=== PATIENT | male | born 1960 | race Caucasian/White ===

== ENCOUNTER 2018-03-31 09:14 | Inpatient (IN) | payer OTHER ==
[2018-03-24 17:47] VITALS: BMI 35.4
[2018-03-31] MEDS ORDERED: DEXAMETHASONE SOD PHOSPHATE 4 MG/1 ML VIAL ONE (10:35)
[2018-03-31] MEDS ORDERED: ONDANSETRON 4 MG/2 ML VIAL ONE (10:35)
[2018-03-31] MEDS ORDERED: MIDAZOLAM HCL 2 MG/2 ML SINGLE DOSE VIAL ONE ×6 (10:35→13:27)
[2018-03-31] MEDS ORDERED: BUPIVACAINE HCL/PF (5 MG/ML) 30 ML VIAL IJ ONE (10:42)
[2018-03-31] MEDS ORDERED: DEXAMETHASONE SOD PHOSPHATE/PF 10 MG/ML SDV ONE (10:42)
[2018-03-31] MEDS ORDERED: BUPIVACAINE HCL/PF 0.5% (5MG/ML) 10 ML VIAL ONE ×2 (10:46→11:36)
--- NOTE | 2018-03-31 11:08 | HP ---
History & Physical Update - History History: No Change - Physical Physical: No Change - Assessment Assessment: No Change - Plan Plan: No Change (Full H&P in chart from 03/20/18)
[2018-03-31] MEDS ORDERED: LIDOCAINE 1%/EPI 1:100000 (20 ML MULTI DOSE VIAL) ONE (11:11)
[2018-03-31] MEDS ORDERED: THROMBIN (BOVINE) 5,000 UNIT VIAL TP ONE ×2 (11:11→12:39)
[2018-03-31] MEDS ORDERED: LIDOCAINE 1%/EPI 1:100000 (50 ML MULTI DOSE VIAL) INF ONE (12:15)
[2018-03-31] MEDS ORDERED: GELATIN SPONGE,ABSORBABLE 1 GM PACKET TP ONE (12:40)
[2018-03-31] MEDS ORDERED: oxyCODONE HCL 5 MG TABLET PO PRN ×4 (13:20→14:24)
[2018-03-31] MEDS ORDERED: ONDANSETRON 4 MG/2 ML VIAL IVPUSH PRN ×2 (13:20→14:24)
[2018-03-31] MEDS ORDERED: PROMETHAZINE HCL 25 MG/1 ML VIAL IVPB PRN (13:20)
[2018-03-31] MEDS ORDERED: KETOROLAC TROMETHAMINE 30 MG/1 ML VIAL IVPUSH PRN (14:24)
[2018-03-31] MEDS ORDERED: LACTATED RINGERS SOLUTION 1,000 ML IV SCH (14:30)
--- NOTE | 2018-03-31 14:34 | OP ---
Operative Note - Note: Operative Date: 03/31/18 Pre-Operative Diagnosis: L2-L3 lumbar spondylolisthesis Operation: L2-L3 posterior lumbar instrumentation/fusion Surgeon: Maciej Mckeon [employer]ing [employer] Officer: Lucy Ward Anesthesiologist/HOUSEHOLD ASSISTANT: Lázaro Winston Anesthesia: Spinal, Local Estimated Blood Loss (mls): 20 Fluid Volume Replaced (mls): 1,000 Operative Report Dictated: Yes
--- NOTE | 2018-03-31 15:42 | SURG ---
Surgery Enrollment Advisor Note Enrollment Advisor: Lucy Ward PA-C Date of Service: 03/31/18 Diagnosis: lumbar spondylolisthesis Procedure: L2-L3 posterior lumbar instumentation/fusion I was present for the entirety of the operative procedure. For further detail, please refer to operative report. Visit type - Case Type Case Type: Scheduled - Emergency Emergency Visit: No - New patient This patient is new to me today: Yes Date on this admission: 03/31/18
[2018-03-31] MEDS ORDERED: traMADol HCL 50 MG TABLET PO SCH (16:00)
[2018-03-31] MEDS ORDERED: traMADol HCL 50 MG TABLET ONE (16:24)
[2018-03-31] MEDS ORDERED: ACETAMINOPHEN 325 MG TABLET (FP) ONE (16:44)
[2018-03-31] MEDS ORDERED: ACETAMINOPHEN 325 MG TABLET (FP) PO SCH (17:00)
[2018-03-31] MEDS ORDERED: oxyCODONE HCL 5 MG TABLET ONE (17:07)
[2018-03-31] MEDS ORDERED: diazePAM 2 MG TABLET ONE (17:28)
[2018-03-31] MEDS ORDERED: CEFAZOLIN 1 GM/D5W 1 GM/50 ML BAG ONE (17:28)
[2018-03-31] MEDS ORDERED: ceFAZolin SODIUM 1 GM VIAL IVPB ONE (17:40)
[2018-03-31] MEDS ORDERED: CEFAZOLIN 1 GM/D5W 1 GM/50 ML BAG IVPB SCH (18:00)
[2018-03-31] MEDS ORDERED: diazePAM 2 MG TABLET PO SCH (18:00)
[2018-03-31 19:02] VITALS: BP 148/86; PULSE 78; TEMP 98.1
--- NOTE | 2018-03-31 21:51 | OP ---
DATE OF OPERATION: 03/31/2018 PREOPERATIVE DIAGNOSES: 1. Spinal stenosis, L2-3. 2. Spondylolisthesis at L2-3. POSTOPERATIVE DIAGNOSES: 1. Spinal stenosis, L2-3. 2. Spondylolisthesis at L2-3. PROCEDURE PERFORMED: 1. Placement of instrumentation at L2-3. 2. Posterior spinal fusion, L2-3. SURGEON: Maciej Mckeon MD PROCESS CONTROL PROGRAMMER: YESIKA Rojas ESTIMATED BLOOD LOSS: 50 mL INTRAVENOUS FLUIDS: Per Anesthesia. ANESTHESIA: Spinal/TLIP. COMPLICATIONS: None. DISPOSITION: The patient was brought to the PACU in stable condition. INDICATIONS OF SURGERY: The patient is a 57-year-old gentleman who has been suffering from pain from his back down his legs. X-rays and MRI were completed which noted that he had spinal stenosis at L2-3 with a spondylolisthesis at that level. He had gone through an exhaustive course of treatment for this, which included medications, physical therapy, as well as injections. Unfortunately, his pain continued to persist despite all this. At this point, risks, benefits, and alternatives were discussed, and the patient consented to surgery. DESCRIPTION OF OPERATION: The patient was brought to the operating room by the anesthesia staff. After appropriate patient identification was performed, spinal anesthesia was given along with a TLIP block. Patient was able to position himself prone onto the OR table with all areas of bony prominences well padded at this time. The C-arm was brought in. The L2 and L3 pedicles were marked off, and 10 mL of lidocaine with epinephrine were injected into his back at this time. His back was prepped and draped in a sterile manner. At this point, a timeout was completed. Incisions were made bilaterally over the L2 and L3 pedicles. Dissection was carried down to the fascia. The fascia was split open at this time. C-arm was brought in. Under C-arm guidance, trocars were advanced into both the L2 and L3 pedicles. Next, the wires were inserted. Over the wires, tap was performed and screws inserted. On the left-hand side, a ruy was measured and placed in. Caps and final tightening were performed. On the right-hand side, a ruy was measured and placed in. Caps and final tightening were performed. A decision was made not to do the TLIF at this time as his anatomy appeared to be altered. The facet joints were burred down, and bone graft was placed in. The fascia was closed with a No. 1 Vicryl suture. The subcutaneous tissue was closed with 2-0 Vicryl suture. The skin was closed with 3-0 Monocryl suture. Dermabond was applied. Steri-Strips were applied. A sterile dressing was applied. Patient was placed supine on the OR bed and brought to the PACU in stable condition. Karrie STEARNS/[id number] MTDD
[2018-03-31] MEDS ORDERED: ATORVASTATIN CA 20 MG TABLET (FP) PO SCH (22:00)
[2018-04-01] MEDS ORDERED: BUPROPION HCL 300 MG, BUPROPION HCL 150 MG PO SCH (10:00)
[2018-04-01] MEDS ORDERED: GABAPENTIN 300 MG CAPSULE (FP) PO SCH (10:00)
== END 2018-03-31 19:02 | disposition home or self-care (01) | DRG 460 ==
LOC: FM/S 09:14
PROVIDERS: ADMIT Orthopaedic Surgery Orthopaedic Surgery of the Spine; ATTEND Orthopaedic Surgery Orthopaedic Surgery of the Spine
PROC: 0SG00K1 Fusion of Lumbar Vertebral Joint with Nonautologous Tissue Substitute, Posterior Approach, Posterior Column, Open Approach (ICD-10-PCS; principal; 2018-03-31 11:34)
DX: M43.16 Spondylolisthesis, lumbar region (principal); M48.061 Spinal stenosis, lumbar region without neurogenic claudication
CPT/HCPCS: 72100-TC-FY; 76001-TC-FY; 94760